=== PATIENT | female | born 1965 | race Caucasian/White ===

== ENCOUNTER 2017-07-12 09:32 | Emergency (ER) | payer SELFPAY ==
[2017-07-12 09:49] LABS: Bilirubin Moderate (Negative); Blood, Urine Large (Negative); Clarity Turbid (Clear); Glucose, Urine (Dipstick) Negative (Negative); Leukocyte Trace (Negative); Nitrite Positive (Negative); Protein, Urine (Dipstick) > or equal to 300 mg/dL (Neg-Trace)
[2017-07-12 09:54] LABS: Bacteria/HPF 4+ HPF (None Seen); RBC/HPF GREATER THAN 50-TNTC HPF (0-3); Squamous Epithelial 0-3 HPF (0-3)
[2017-07-12 09:55] LABS: Pregnancy Test - Urine (BHCG) Negative (Negative); Pregu Control Bar Appear? YES (CONTROL BAR)
[2017-07-12 09:57] LABS: Pregu Control Background? CLEAR/WHITE (CLR/WHITE)
[2017-07-12 10:30] LABS: #Basophils 0.1 thou/uL (0.0-0.2); #Eosinphils 0.3 thou/uL (0.0-0.7); #Lymphocytes 3.4 thou/uL (1.20-3.40); #Monocytes 0.8 thou/uL (0.11-0.59); #Neutrophils 4.9 thou/uL (1.40-6.50); %Basophils 1.1 % (0.0-1.0); %Eosinophils 3.2 % (0.0-10.0); %Lymphocytes 35.5 % (21.0-51.0); %Monocytes 8.2 % (0.0-10.0); %Neutrophils 51.9 % (42.0-75.0); Hemoglobin 9.1 g/dL (12.0-16.0); Mean Corpuscular Hemoglobin 26.1 pg (27.0-31.0); Mean Corpuscular Volume 81.5 fl (81.0-99.0); Mean Platelet Volume 6.1 fL (7.4-10.4); Platelet Count 459 thou/uL (130-400); RBC Distribution Width 15.2 % (11.5-14.5); White Blood Cell (WBC) Count 9.4 thou/uL (4.8-10.8)
[2017-07-12 10:38] LABS: ALT (SGPT) 18 U/L (8-55); AST (SGOT) 25 U/L (5-34); Albumin 3.6 g/dL (3.5-5.0); Alkaline Phosphatase 108 U/L (40-150); Anion Gap 13 mmol/L (10-20); BUN (Urea Nitrogen) 17 mg/dL (7.0-18.7); Bilirubin, Total Less than 0.2 mg/dL (0.2-1.2); Calc. Creatinine Clearance 0 mL/min (70-130); Calcium 8.8 mg/dL (7.8-10.44); Carbon Dioxide 24 mmol/L (22-29); Chloride 106 mmol/L (98-107); Estimated GFR-MDRD Greater than 90; Globulin 3.1 g/dL (2.4-3.5); Glucose 92 mg/dL (70-105); Potassium 3.9 mmol/L (3.5-5.1); Protein, Total 6.7 g/dL (6.0-8.3); Sodium 139 mmol/L (136-145)
[2017-07-12] MEDS ORDERED: Sulfameth/Trimethoprim DS 800-160mg TAB ONE (10:51)
[2017-07-12] MEDS ORDERED: Acetaminophen 500 MG TAB ONE (10:51)
--- NOTE | 2017-07-12 16:00 | CT ---
PRELIMINARY REPORT/[facility]/EMERGENCY AFTER HOURS PROCEDURE: EXAM: CT Abdomen and Pelvis Without Intravenous Contrast CLINICAL HISTORY: The patient is a 52 years female; Signs and symptoms; Other: Hematuria; Patient HX: Hiatal hernia TECHNIQUE: Axial computed tomography images of the abdomen and pelvis without intravenous contrast. COMPARISON: No relevant prior studies available. FINDINGS: Lower thorax: Mild right basilar atelectasis or scarring. No lobar consolidation. ABDOMEN: Liver: Unremarkable. Gallbladder and bile ducts: No calcified stones. No ductal dilation. Pancreas: Unremarkable. No ductal dilation. Spleen: Unremarkable. No splenomegaly. Adrenals: Unremarkable. No mass. Kidneys and ureters: No renal or ureteral calculi or hydroureteronephrosis. Normal variant circumaor tic left renal vein. Stomach and bowel: Unremarkable. No obstruction. No mucosal thickening. Appendix: No findings to suggest acute appendicitis. PELVIS: Bladder: The bladder is partially filled with mild diffuse wall thickening. No bladder stones, howeve r there are subtle soft tissue attenuation masses measuring approximately 3.5 cm on the right posteri sivakumar (see image 70 series 2) and 1 cm posteriorly/superiorly at midline which could represent transit ional cell carcinoma versus clot. Reproductive: Unremarkable as visualized. ABDOMEN and PELVIS: Intraperitoneal space: No evidence of free fluid or fluid collection. No free air. Bones/joints: No acute fracture. No dislocation. Soft tissues: Unremarkable. Vasculature: Mild atherosclerotic calcification. Lymph nodes: Unremarkable. No enlarged lymph nodes. IMPRESSION: 1. Soft tissue attenuation bladder mass(es) suspicious for transitional cell carcinoma, with differen tial including clot. This can be further evaluated with cystoscopy. 2. No urinary tract calculi. No hydronephrosis. Thank you for allowing us to participate in the care of your patient. Dictated and Authenticated by: Han Milligan MD 07/12/2017 10:55 AM Central Time ([place] & [place]) FINAL REPORT CT ABDOMEN AND PELVIS WITHOUT CONTRAST: DATE: 07/12/17. FINDINGS: Spiral CT of the abdomen and pelvis was performed for evaluation of hematuria. Axial slices were acq uired, then coronal reconstructions were done. Aside from some minimal scarring in the right lower l obe, the lung bases were clear. The liver, gallbladder, adrenal glands, and abdominal aorta showed n o acute findings within the limitations of a noncontrast study. What I interpret to be the spleen is much rounder than usual in the left upper quadrant. It would have been nice to have IV contrast to sure that it enhances appropriately and is not a large cyst or other structure. It does indent the l ateral wall of the stomach slightly. The kidneys showed no mass or hydronephrosis within the limitations of this noncontrast study. No re nal or ureteral calculi were seen. A major finding on the study occurs in the urinary bladder. Whil e it would be imaged better with contrast, there do appear to be internal soft tissue densities withi n the bladder, especially in the right posterior portion, along with some bladder wall thickening. T he differential ranges from neoplasm, such as transitional cell, all the way to blood clots. Urologi crystal referral and cystoscopy is recommended. The bowel shows no dilation, bowel wall thickening, or inflammatory changes around it. There is no f ree air or free fluid seen. CT of the pelvis was remarkable for the internal soft tissue densities within the urinary bladder, bu t no other findings of acute concern were seen. The spine was unremarkable. IMPRESSION: Within the limitations of this being a noncontrast study which could miss some items, the pertinent f indings are: 1. Apparent soft tissue densities within the urinary bladder. Tumor versus clot. Urological referr al and cystoscopy recommended. 2. The splenic shape, or what I presume to be the spleen, is very round. Ultrasound or followup CT with contrast would be comforting to be sure that this is just an unusually-shaped spleen. 3. No other acute findings of concern. Report in agreement with preliminary reading by [employer]. POS: HOME
== END 2017-07-12 11:08 | disposition home or self-care (01) ==
LOC: BURERS 09:32
DX: N39.0 Urinary tract infection, site not specified (principal); N32.9 Bladder disorder, unspecified; I10 Essential (primary) hypertension; J44.9 Chronic obstructive pulmonary disease, unspecified; F17.210 Nicotine dependence, cigarettes, uncomplicated
CPT/HCPCS: 36415; 74176; 80053; 81003; 81015; 81025; 85025; 87077; 87086

== ENCOUNTER 2019-04-29 06:21 | Emergency (ER) | payer SELFPAY ==
[2019-04-29] MEDS ORDERED: Ketorolac Tromethamine 30 MG/ML VIAL ONE (06:43)
[2019-04-29] MEDS ORDERED: Ondansetron PF 4 MG/2 ML Vial ONE (06:44)
[2019-04-29 07:24] LABS: #Basophils 0.1 thou/uL (0.0-0.2); #Lymphocytes 1.9 thou/uL (1.20-3.40); #Monocytes 0.7 thou/uL (0.11-0.59); %Basophils 0.7 % (0.0-1.0); %Eosinophils 0.1 % (0.0-10.0); %Lymphocytes 14.9 % (21.0-51.0); %Monocytes 5.3 % (0.0-10.0); %Neutrophils 78.9 % (42.0-75.0); Hemoglobin 3.3 g/dL (12.0-16.0); Mean Corpuscular HGB CONC 31.2 g/dL (32.0-36.0); Mean Corpuscular Volume 83.4 fL (78.0-98.0); Mean Platelet Volume 6.9 fL (7.4-10.4); Platelet Count 451 thou/uL (130-400); RBC Distribution Width 17.4 % (11.5-14.5); Red Blood Cell (RBC) Count 1.26 mill/uL (4.20-5.40); White Blood Cell (WBC) Count 12.6 thou/uL (4.8-10.8)
[2019-04-29 07:32] LABS: ALT (SGPT) 9 U/L (8-55); AST (SGOT) 12 U/L (5-34); Albumin 3.4 g/dL (3.5-5.0); Alkaline Phosphatase 71 U/L (40-110); Anion Gap 13 mmol/L (10-20); BUN (Urea Nitrogen) 10 mg/dL (9.8-20.1); Bilirubin, Total Less than 0.2 mg/dL (0.2-1.2); Calc. Creatinine Clearance 0 mL/min (70-130); Calcium 8.8 mg/dL (7.8-10.44); Carbon Dioxide 23 mmol/L (22-29); Chloride 103 mmol/L (98-107); Estimated GFR-MDRD 74; Globulin 2.4 g/dL (2.4-3.5); Glucose 155 mg/dL (70-105); Lipase 8 U/L (8-78); Potassium 3.6 mmol/L (3.5-5.1); Protein, Total 5.8 g/dL (6.0-8.3); Sodium 135 mmol/L (136-145)
--- NOTE | 2019-04-29 08:48 | CT ---
CT ABDOMEN AND PELVIS PERFORMED WITH IV CONTRAST ENHANCEMENT: Date: 04/29/19 HISTORY: Gross hematuria. History of bladder mass. COMPARISON: 07/12/17 exam. FINDINGS: The lung bases are clear of any infiltrative process. There is suggestion of some distal esophageal w all thickening, raising the possibility of reflux. The liver shows no focal abnormalities. Spleen has a somewhat unusual rounded configuration, but show s no mass. The pancreas and gallbladder regions appear unremarkable. Right and left adrenal glands, and right and left kidneys are normal in appearance. There is no signi ficant periaortic or mesenteric lymphadenopathy. Appendix is retrocecal in location and normal in siz e. CT of pelvis was performed with contrast enhancement. There are small, subcentimeter in size iliac ch ain lymph nodes present, which are nonspecific. Also some small, subcentimeter nodes in the lower lef t periaortic chain. There is a distended bladder. There is air interspersed with some intraluminal ap pearing high density material which is presumed to be blood. Some of the changes along the more poste rior bladder wall could also be an associated bladder wall mass. I presume that the air is related to some type of catheterization that has been performed. Clinical correlation is recommended. IMPRESSION: 1. Distended bladder. There is suggestion of what is probably a mass along the posterior bladder wal l, more along the right side, and intraluminally there is a higher attenuation area with some intersp ersed air densities present. I would presume that this is clot within the bladder. I presume that the air is related to the patient being catheterized. 2. Small, nonspecific bilateral iliac chain lymph nodes and small, subcentimeter periaortic nodes. POS: OFF
[2019-04-29] MEDS ORDERED: cefTRIAXone\\ROCEPHIN 2 GM VIAL ONE (09:00)
[2019-04-29 09:13] LABS: Clarity Cloudy (Clear)
[2019-04-29 09:18] LABS: Glucose, Urine (Dipstick) Unable to Interpret mg/dL (Negative); Leukocyte Unable to Interpret (Negative); Nitrite Unable to Interpret (Negative); Protein, Urine (Dipstick) Unable to Interpret mg/dL (Neg-Trace)
[2019-04-29 09:19] LABS: Bilirubin Unable to Interpret (Negative); Blood, Urine Unable to Interpret (Negative)
[2019-04-29 09:32] LABS: Bacteria/HPF 2+ HPF (None Seen); RBC/HPF Greater than 50 HPF (0-3); Squamous Epithelial 0-3 HPF (0-3); WBC/HPF 0-3 HPF (0-3)
== END 2019-04-29 10:35 | disposition short-term general hospital (02) ==
LOC: BURERS 06:21
DX: C67.9 Malignant neoplasm of bladder, unspecified (principal); D50.0 Iron deficiency anemia secondary to blood loss (chronic); N32.1 Vesicointestinal fistula; I10 Essential (primary) hypertension; F17.210 Nicotine dependence, cigarettes, uncomplicated; Z79.82 Long term (current) use of aspirin
CPT/HCPCS: 36430; 51702; 74177; 80053; 81003; 81015; 83605; 83690; 85025; 86850; 86900; 86901; 87086; 87804; 94760; 96361; 96365; 96375; J0696; J1885; J2405; P9016

== ENCOUNTER 2019-11-25 16:48 | Outpatient (CLI) | payer MEDICAID ==
[2019-11-25 17:20] LABS: Hemoglobin 11.1 g/dL (12.0-16.0); Mean Corpuscular HGB CONC 30.3 g/dL (32.0-36.0); Mean Corpuscular Hemoglobin 30.3 pg (27.0-31.0); Mean Platelet Volume 6.7 fL (7.4-10.4); Platelet Count 201 thou/uL (130-400); RBC Distribution Width 20.8 % (11.5-14.5); Red Blood Cell (RBC) Count 3.67 mill/uL (4.20-5.40); White Blood Cell (WBC) Count 5.2 thou/uL (4.8-10.8)
== END 2019-11-25 16:49 | disposition home or self-care (01) ==
LOC: BURLAB 16:48
PROVIDERS: ATTEND Internal Medicine Hematology & Oncology
DX: C67.0 Malignant neoplasm of trigone of bladder (principal)
CPT/HCPCS: 85027

== ENCOUNTER 2020-02-08 09:33 | Outpatient (CLI) | payer OTHER ==
[2020-02-08 09:46] LABS: Hemoglobin 9.8 g/dL (12.0-16.0); Mean Corpuscular HGB CONC 31.3 g/dL (32.0-36.0); Mean Corpuscular Hemoglobin 28.1 pg (27.0-31.0); Mean Corpuscular Volume 89.7 fL (78.0-98.0); Mean Platelet Volume 6.3 fL (7.4-10.4); Platelet Count 742 thou/uL (130-400); RBC Distribution Width 16.5 % (11.5-14.5); White Blood Cell (WBC) Count 19.8 thou/uL (4.8-10.8)
== END 2020-02-08 09:34 | disposition home or self-care (01) ==
LOC: BURLAB 09:33
PROVIDERS: ATTEND Internal Medicine Hematology & Oncology
DX: C67.0 Malignant neoplasm of trigone of bladder (principal)

== ENCOUNTER 2021-04-02 14:08 | Outpatient (CLI) | payer OTHER | END 2021-04-02 14:09 | disposition home or self-care (01) | LOC: BURRAD 14:08 | PROVIDERS: ATTEND Family Medicine | DX: M54.50 Low back pain, unspecified (principal) | CPT/HCPCS: 72100 ==

== ENCOUNTER 2022-06-09 13:24 | Emergency (ER) | payer OTHER ==
[2022-06-09] MEDS ORDERED: Ketorolac Tromethamine 30 MG/ML VIAL ONE (13:40)
[2022-06-09 14:04] LABS: Bilirubin Negative (Negative); Blood, Urine Trace (Negative); Clarity Cloudy (Clear); Glucose, Urine (Dipstick) Negative (Negative); Ketone, Urine Negative (Negative); Leukocyte Negative (Negative); Nitrite Positive (Negative); Protein, Urine (Dipstick) > or equal to 300 mg/dL (Neg-Trace); Urobilinogen 0.2 mg/dL (Less than 2)
[2022-06-09 14:13] LABS: Amphetamine Not Detected (NotDetected); Barbiturates Screen Not Detected (NotDetected); Benzodiazepine Screen Not Detected (NotDetected); Cocaine Metabolite Screen Not Detected (NotDetected); Medtox Control Line Valid? VALID (VALID); Methadone Not Detected (NotDetected); Methamphetamine Not Detected (NotDetected); Opiate Screen Not Detected (NotDetected); Oxycodone Screen Not Detected (NotDetected); Phencyclidine (PCP) Not Detected (NotDetected); THC/Cannabinoid Screen Detected (NotDetected); Tricyclic Screen Not Detected (NotDetected)
[2022-06-09 14:16] LABS: Bacteria/HPF 3+ HPF (None Seen); Mucous/LPF 4+ LPF (<2+); RBC/HPF 0-3 HPF (0-3); Squamous Epithelial 0-3 HPF (0-3)
[2022-06-09 14:36] LABS: #Basophils 0.1 thou/uL (0.0-0.2); #Lymphocytes 2.1 thou/uL (1.20-3.40); #Monocytes 0.6 thou/uL (0.11-0.59); #Neutrophils 7.4 thou/uL (1.40-6.50); %Basophils 0.8 % (0.0-1.0); %Eosinophils 0.5 % (0.0-10.0); %Lymphocytes 20.3 % (21.0-51.0); %Monocytes 5.7 % (0.0-10.0); %Neutrophils 72.7 % (42.0-75.0); Mean Corpuscular HGB CONC 32.6 g/dL (32.0-36.0); Mean Corpuscular Hemoglobin 29.8 pg (27.0-31.0); Mean Corpuscular Volume 91.4 fl (78.0-98.0); Platelet Count 546 10x3/uL (130-400); RBC Distribution Width 13.7 % (11.5-14.5); Red Blood Cell (RBC) Count 5.03 mill/uL (4.20-5.40); White Blood Cell (WBC) Count 10.2 10x3/uL (4.8-10.8)
[2022-06-09] MEDS ORDERED: cefTRIAXone\\ROCEPHIN 1 GM VIAL ONE (14:50)
[2022-06-09 14:53] LABS: ALT (SGPT) 30 U/L (8-55); AST (SGOT) 29 U/L (5-34); Albumin 3.9 g/dL (3.5-5.0); Alkaline Phosphatase 114 U/L (40-110); Anion Gap 13 mmol/L (10-20); BUN (Urea Nitrogen) 14 mg/dL (9.8-20.1); Bilirubin, Total 0.3 mg/dL (0.2-1.2); Calc. Creatinine Clearance 0 mL/min (70-130); Calcium 8.9 mg/dL (7.8-10.44); Carbon Dioxide 25 mmol/L (22-29); Chloride 101 mmol/L (98-107); Estimated GFR 88; Globulin 3.2 g/dL (2.4-3.5); Glucose 98 mg/dL (70-105); Potassium 4.3 mmol/L (3.5-5.1); Protein, Total 7.1 g/dL (6.0-8.3); Sodium 135 mmol/L (136-145)
[2022-06-09 14:55] LABS: CRP (Inflammatory) Less than 0.50 mg/dL (= or < 0.5); Lipase 14 U/L (8-78); Magnesium 1.8 mg/dL (1.6-2.6)
[2022-06-09] MEDS ORDERED: Iopamidol 370 76% 100 ML VIAL ONE (14:56)
== END 2022-06-09 16:36 | disposition home or self-care (01) ==
LOC: BURERS 13:24
DX: N39.0 Urinary tract infection, site not specified (principal); F12.10 Cannabis abuse, uncomplicated; I10 Essential (primary) hypertension; J44.9 Chronic obstructive pulmonary disease, unspecified; F17.210 Nicotine dependence, cigarettes, uncomplicated
CPT/HCPCS: 74177; 80053; 80306; 81003; 81015; 83605; 83690; 83735; 83880; 84443; 84484; 85025; 85379; 86140; 93005; 96365; 96375; J0696; J1885; Q9967

== ENCOUNTER → 2023-06-05 | Day surgery (SDC) | payer OTHER ==
[~2023-06-05] MED LIST: Rabies Vaccine Human 2.5 UNITS VIAL ONE
[2023-06-05 17:34] VITALS: BP 173/105; TEMP 98.4
== END ==
LOC: BUR/OP 10:46
PROVIDERS: ATTEND Emergency Medicine
DX: Z23 Encounter for immunization (principal)
CPT/HCPCS: 90675

== ENCOUNTER → 2023-06-12 | Day surgery (SDC) | payer OTHER | LOC: BUR/OP 13:10 | PROVIDERS: ATTEND Emergency Medicine | DX: Z23 Encounter for immunization (principal) | CPT/HCPCS: 90675 ==

== ENCOUNTER 2024-08-01 02:45 | Emergency (ER) | payer OTHER ==
[2024-08-01] MEDS ORDERED: Acetaminophen 500 MG TAB ONE (03:27)
[2024-08-01] MEDS ORDERED: Boostrix 0.5 ML (Tdap) VIAL (>/=7 yrs of age) ONE (03:30)
== END 2024-08-01 03:40 | disposition home or self-care (01) ==
LOC: EEVIPCON 02:45 → BURERS 02:45
DX: S50.812A Abrasion of left forearm, initial encounter (principal); S50.811A Abrasion of right forearm, initial encounter; J44.9 Chronic obstructive pulmonary disease, unspecified; F17.210 Nicotine dependence, cigarettes, uncomplicated; Y04.0XXA Assault by unarmed brawl or fight, initial encounter
CPT/HCPCS: 90471; 90715

== ENCOUNTER 2025-03-10 15:31 | Emergency (ER) | payer MEDICAID ==
[~2025-03-10 15:31] MED LIST changes: +Iopamidol 370 76% 100 ML VIAL ONE; -Rabies Vaccine Human 2.5 UNITS VIAL ONE
[2025-03-10] MEDS ORDERED: Metoclopramide HCl 10 MG (2 mL) VIAL ONE (16:23)
[2025-03-10 16:24] LABS: #Basophils 0.1 thou/uL (0.0-0.2); #Eosinophils 0.0 thou/uL (0.0-0.7); #Lymphocytes 2.4 thou/uL (1.20-3.40); #Monocytes 1.4 thou/uL (0.11-0.59); #Neutrophils 7.9 thou/uL (1.40-6.50); %Basophils 0.8 % (0.0-1.0); %Eosinophils 0.3 % (0.0-10.0); %Lymphocytes 20.2 % (21.0-51.0); %Monocytes 12.1 % (0.0-10.0); %Neutrophils 66.6 % (42.0-75.0); Hematocrit 33.3 % (36.0-47.0); Hemoglobin 11.5 g/dL (12.0-16.0); Mean Corpuscular Hemoglobin 27.3 pg (27.0-31.0); Mean Corpuscular Volume 79.1 fl (78.0-98.0); Platelet Count 421 10x3/uL (130-400); Red Blood Cell (RBC) Count 4.21 mill/uL (4.20-5.40); White Blood Cell (WBC) Count 11.9 10x3/uL (4.8-10.8)
[2025-03-10 16:39] LABS: ALT (SGPT) 19 U/L (Less than 34); AST (SGOT) 24 U/L (11-34); Albumin 2.8 g/dL (3.1-4.5); Alkaline Phosphatase 143 U/L (40-110); Anion Gap 18 mmol/L (10-20); BUN (Urea Nitrogen) 23 mg/dL (9.8-20.1); Bilirubin, Total 0.4 mg/dL (0.3-1.2); Calc. Creatinine Clearance 0 mL/min (70-130); Calcium 9.8 mg/dL (7.8-10.44); Carbon Dioxide 22 mmol/L (22-29); Chloride 93 mmol/L (98-107); Globulin 4.4 g/dL (2.4-3.5); Glucose 129 mg/dL (70-105); Lipase 34 U/L (8-78); Potassium 3.6 mmol/L (3.5-5.1); Sodium 129 mmol/L (136-145)
[2025-03-10 16:49] LABS: Glucose, Urine (Dipstick) Negative (Negative); Leukocyte Small (Negative); Protein, Urine (Dipstick) 30 mg/dL (Neg-Trace); Specific Gravity, Urine 1.010 (1.005-1.030)
[2025-03-10 16:57] LABS: Bacteria/HPF 2+ HPF (None Seen); CAUTI Indications for Culture Pelvic or flank pain; RBC/HPF 0-3 HPF (0-3)
[2025-03-10 16:58] LABS: Urine Culture Reflex No No
[2025-03-10] MEDS ORDERED: Acetaminophen 500 MG TAB ONE (17:13)
[2025-03-10] MEDS ORDERED: Ciprofloxacin 500 MG TAB ONE (18:17)
== END 2025-03-10 18:23 | disposition home or self-care (01) ==
LOC: BURERS 15:31
DX: K52.9 Noninfective gastroenteritis and colitis, unspecified (principal); N39.0 Urinary tract infection, site not specified; I10 Essential (primary) hypertension; F17.210 Nicotine dependence, cigarettes, uncomplicated; Z79.899 Other long term (current) drug therapy
CPT/HCPCS: 74177; 80053; 81001; 83605; 83690; 85025; 96361; 96374; J2765; Q9967